=== PATIENT | female | born 1970 | race Caucasian/White ===

== ENCOUNTER 2017-07-27 11:29 | Emergency (ER) | payer OTHER ==
[2017-07-27 13:36] VITALS: BP 143/75
--- NOTE | 2017-07-27 14:03 | ED ---
Throat Pain/Nasal Congestion - HPI Summary HPI Summary: 47 yr old female with the complaint of sinus pressure bilateral, coughing, yellow nasal discharge. She has been ill for about one week. She denies other complaints. - History of Current Complaint Chief Complaint: UCGeneralIllness Time Seen by Provider: 07/27/17 13:44 - Allergies/Home Medications Allergies/Adverse Reactions: Allergies Allergy/AdvReac Type Severity Reaction Status Date / Time No Known Allergies Allergy Verified 07/27/17 13:33 PMH/Surg Hx/FS Hx/Imm Hx - Surgical History Surgery Procedure, Year, and Place: facial reconstructive surgery\. tubal ligation Infectious Disease History: No Infectious Disease History: Denies: Traveled Outside the [place] in Last 30 Days - Family History Known Family History: Positive: None - Social History Occupation: Employed Full-time Lives: With Family Alcohol Use: Daily Alcohol Amount: 8-15 beers Substance Use Type: Reports: None Smoking Status (MU): Heavy Every Day Tobacco Smoker Type: Cigarettes Amount Used/How Often: 1.5-2 ppd Review of Systems Constitutional: Negative Positive: Nasal Discharge, Other - sinus pressure Positive: Cough All Other Systems Reviewed And Are Negative: Yes Physical Exam Triage Information Reviewed: Yes Vital Signs On Initial Exam: Initial Vitals Temp Pulse Resp BP Pulse Ox 99 F 74 16 143/75 100 07/27/17 13:31 07/27/17 13:31 07/27/17 13:31 07/27/17 13:31 07/27/17 13:31 Vital Signs Reviewed: Yes Appearance: Positive: Well-Appearing, No Pain Distress Eyes: Positive: EOMI ENT: Positive: Nasal congestion, Sinus tenderness - bilateral sinus tenderness. Neck: Positive: Supple, Nontender Respiratory/Lung Sounds: Positive: Clear to Auscultation, Breath Sounds Present Cardiovascular: Positive: RRR. Negative: Murmur Abdomen Description: Positive: Nontender Musculoskeletal: Positive: Strength/ROM Intact Neurological: Positive: Sensory/Motor Intact, Alert, Oriented to Person Place, Time, CN Intact II-III Psychiatric: Positive: Normal AVPU Assessment: Alert - Cyrus Coma Scale Best Eye Response: 4 - Spontaneous Best Motor Response: 6 - Obeys Commands Best Verbal Response: 5 - Oriented Coma Scale Total: 15 Diagnostics - Vital Signs Vital Signs Temp Pulse Resp BP Pulse Ox 07/27/17 13:31 99 F 74 16 143/75 100 - Laboratory Lab Statement: Any lab studies that have been ordered have been reviewed, and results considered in the medical decision making process. EENT Course/Dx - Course Course Of Treatment: 47 yr old with sinusitis. Rx augmentin. Dc home - Diagnoses Provider Diagnoses: Sinusitis, Hypertension Discharge - Discharge Plan Condition: Good Disposition: HOME Prescriptions: Amoxicillin/Clavulanate TAB* [Augmentin TAB 875*] 875 mg PO BID #20 tab Patient Education Materials: Sinusitis (ED), Hypertension (ED) Referrals: Anjali Mendez PA [Primary Care Provider] -
== END 2017-07-27 14:00 | disposition home or self-care (01) ==
LOC: UCCORT 11:29
DX: J32.9 Chronic sinusitis, unspecified (principal); I10 Essential (primary) hypertension; F17.210 Nicotine dependence, cigarettes, uncomplicated
CPT/HCPCS: 99212; G0463

== ENCOUNTER 2017-08-21 10:37 | Emergency (ER) | payer OTHER ==
[2017-08-21 11:44] VITALS: BP 154/81
--- NOTE | 2017-08-21 12:02 | UC ---
General HPI - HPI Summary HPI Summary: PT IS C/O HEAD CONGESTION, SNEEZING, COUGH, BODYACHES AND SUBJECTIVE FEVER AND CHILLS. SHE ADMITS TO SOME WHEEZING AND SOB. PT IS A SMOKER BUT DENIES LUNG DISEASE. SUDDEN ONSET THIS PAST SUNDAY NIGHT. - History of Current Complaint Chief Complaint: UCRespiratory Stated Complaint: FLU SYMPTOMS Time Seen by Provider: 08/21/17 11:20 Hx Obtained From: Patient Hx Last Menstrual Period: 08/05/17 Onset/Duration: Sudden Onset Timing: Constant Pain Intensity: 3 Aggravating: nothing Alleviating: nothing Associated Signs & Symptoms: Positive: Cough, Fever, SOB, Wheezing. Negative: Chest Pain, Headache - Allergy/Home Medications Allergies/Adverse Reactions: Allergies Allergy/AdvReac Type Severity Reaction Status Date / Time No Known Allergies Allergy Verified 08/21/17 11:43 PMH/Surg Hx/FS Hx/Imm Hx Respiratory History: Bronchitis - Surgical History Surgical History: Yes Surgery Procedure, Year, and Place: facial reconstructive surgery\. tubal ligation - Family History Known Family History: Positive: None - Social History Occupation: Employed Full-time Lives: With Family Alcohol Use: Daily Alcohol Amount: 8-15 beers Substance Use Type: None Smoking Status (MU): Heavy Every Day Tobacco Smoker Type: Cigarettes Amount Used/How Often: 1.5-2 ppd - Immunization History Vaccination Up to Date: Yes Review of Systems Constitutional: Fever, Chills Skin: Negative Eyes: Negative ENT: Nasal Discharge, Sinus Congestion Respiratory: Shortness Of Breath, Cough Cardiovascular: Negative Gastrointestinal: Negative Genitourinary: Negative Motor: Negative Neurovascular: Negative Musculoskeletal: Negative Neurological: Negative Psychological: Negative Is Patient Immunocompromised?: No All Other Systems Reviewed And Are Negative: Yes Physical Exam Triage Information Reviewed: Yes Appearance: Well-Appearing Vital Signs: Initial Vital Signs Temp 98.9 F 08/21/17 11:39 Pulse 89 08/21/17 11:39 Resp 17 08/21/17 11:39 BP 154/81 08/21/17 11:39 Pulse Ox 100 08/21/17 11:39 Vital Signs Reviewed: Yes Eyes: Positive: Conjunctiva Clear ENT: Positive: Pharynx normal, Nasal congestion, TMs normal. Negative: Nasal drainage, Sinus tenderness Neck: Positive: Supple, Nontender, No Lymphadenopathy Respiratory: Positive: Lungs clear, No respiratory distress, Decreased breath sounds, Other: - cough is congested. Negative: Crackles Cardiovascular: Positive: RRR, No Murmur Abdomen Description: Positive: Nontender, No Organomegaly, Soft Bowel Sounds: Positive: Present Musculoskeletal: Positive: ROM Intact Neurological: Positive: Alert Psychological: Positive: Age Appropriate Behavior Skin Exam: Normal Course/Dx - Course Course Of Treatment: mild elevation in BP, no hx htn. i think illness related, will have rechecked on f/u. nothing on exam to suggest bacterila infection. abrupt onset with s/s's are DORA. tx supportive plus will add albuterol mdi. close f/u advised. - Differential Dx - Multi-Symptom Provider Diagnoses: influenza like illness Discharge - Discharge Plan Condition: Stable Disposition: HOME Prescriptions: Albuterol HFA INHALER* [Ventolin HFA Inhaler*] 2 puff INH Q6H 14 Days #1 mdi Patient Education Materials: Influenza (ED) Forms: *Work Release Referrals: Anjali Mendez PA [Primary Care Provider] - 5 Days
== END 2017-08-21 12:17 | disposition home or self-care (01) ==
LOC: UCCORT 10:37
DX: J11.1 Influenza due to unidentified influenza virus with other respiratory manifestations (principal); F17.210 Nicotine dependence, cigarettes, uncomplicated
CPT/HCPCS: 99212; G0463

== ENCOUNTER 2018-06-13 11:15 | Emergency (ER) | payer OTHER ==
[2018-06-13 13:00] VITALS: BP 171/87
[2018-06-13] MEDS ORDERED: Albuterol 2.5 MG/3 ML NEB.SOL* (0.083%) INH ONE (13:31)
--- NOTE | 2018-06-13 13:32 | UC ---
Respiratory Complaint HPI - HPI Summary HPI Summary: 6 days of productive cough, occasional chills, some body aches. 2 sick contacts at home, w/ her in room today. She is a smoker. did not get flu shot this yr. Has albuterol inhaler at home which she has not used at all. - History of Current Complaint Chief Complaint: UCRespiratory Stated Complaint: SINUSES, COUGH Time Seen by Provider: 06/13/18 12:57 Hx Last Menstrual Period: 08/05/17 Onset/Duration: Gradual Onset Pain Intensity: 3 Pain Scale Used: 0-10 Numeric Character: Cough: Productive Associated Signs And Symptoms: Positive: Chills. Negative: Dyspnea, Fever - Allergies/Home Medications Allergies/Adverse Reactions: Allergies Allergy/AdvReac Type Severity Reaction Status Date / Time No Known Allergies Allergy Verified 06/13/18 12:57 PMH/Surg Hx/FS Hx/Imm Hx Previously Healthy: Yes Respiratory History: Other - smoker - Surgical History Surgical History: Yes Surgery Procedure, Year, and Place: facial reconstructive surgery. tubal ligation - Family History Known Family History: Positive: None - Social History Alcohol Use: Daily Alcohol Amount: 8-15 beers Substance Use Type: None Smoking Status (MU): Heavy Every Day Tobacco Smoker Type: Cigarettes Amount Used/How Often: 1.5-2 ppd - Immunization History Vaccination Up to Date: Yes Review of Systems All Other Systems Reviewed And Are Negative: Yes Constitutional: Positive: Chills, Fatigue. Negative: Fever Eyes: Negative: Drainage Respiratory: Positive: Cough - productive. Negative: Shortness Of Breath Cardiovascular: Positive: Negative Gastrointestinal: Negative: Vomiting, Diarrhea Musculoskeletal: Positive: Myalgia Neurological: Negative: Headache Physical Exam Triage Information Reviewed: Yes Appearance: Well-Appearing, Thin, Other: - strong odor of smoke. Vital Signs: Initial Vital Signs Temp 98.9 F 06/13/18 12:57 Pulse 95 06/13/18 12:57 Resp 16 06/13/18 12:57 BP 171/87 06/13/18 12:57 Pulse Ox 97 06/13/18 12:57 Vital Signs Reviewed: Yes ENT: Positive: Pharynx normal, TMs normal, Uvula midline. Negative: Sinus tenderness Neck: Positive: Supple, Nontender, No Lymphadenopathy Respiratory Exam: Normal Respiratory: Positive: Lungs clear, No respiratory distress, Other: - coughing during visit. Cardiovascular Exam: Normal Cardiovascular: Positive: Other: - no LE edema Neurological: Positive: Alert Skin Exam: Normal UC Diagnostic Evaluation - Laboratory O2 Sat by Pulse Oximetry: 97 Respiratory Course/Dx - Course Course Of Treatment: Acute viral bronchitis in a smoker w/ good O2 today and no fever. has 2 sick contacts who are in the room w/ her. neg for flu. felt improvement w/ neb tx today. exam unremarkable aside from strong odor of smoke smell. Encouraged pt to use albuterol. We discussed how smoking could make symptoms worse. - Differential Dx/Diagnosis Differential Diagnosis/HQI/PQRI: Asthma, Bronchitis, CHF, Sinusitis Provider Diagnosis: Bronchitis Discharge - Sign-Out/Discharge Documenting (check all that apply): Patient Departure All imaging exams completed and their final reports reviewed: No Studies - Discharge Plan Condition: Good Disposition: HOME Prescriptions: Benzonatate CAP* [Tessalon 100 MG CAP*] 100 mg PO TID 5 Days #15 cap Patient Education Materials: Acute Bronchitis (ED), Hypertension (ED) Forms: *Work Release Referrals: Anjali Mendez PA [Primary Care Provider] - Additional Instructions: YOu do not have the flu and you do not have pneumonia. But you do have a virus causing inflammation of the large tubes in your lungs which is called bronchitis. There are no medications that treat viruses but we can at least treat your cough. Use your albuterol at home every 4-6 hours. Also your blood pressure was elevated which you should see your doctor for. - Billing Disposition and Condition Condition: GOOD Disposition: Home
== END 2018-06-13 14:30 | disposition home or self-care (01) ==
LOC: UCCORT 11:15
DX: J40 Bronchitis, not specified as acute or chronic (principal); F17.210 Nicotine dependence, cigarettes, uncomplicated
CPT/HCPCS: 99212; G0463

== ENCOUNTER 2018-06-25 15:02 | Emergency (ER) | payer OTHER ==
[2018-06-25 15:14] VITALS: BP 151/81
--- NOTE | 2018-06-25 15:30 | ED ---
Throat Pain/Nasal Congestion - History of Current Complaint Chief Complaint: UCGeneralIllness Time Seen by Provider: 06/25/18 15:14 Hx Obtained From: Patient Onset/Duration: Lasting Days Severity: Moderate Associated Signs And Symptoms: Positive: Wheezing, Sinus Discomfort Cough: Nonproductive - Epiglottits Risk Factors Epiglottis Risk Factors: Negative - Allergies/Home Medications Allergies/Adverse Reactions: Allergies Allergy/AdvReac Type Severity Reaction Status Date / Time No Known Allergies Allergy Verified 06/25/18 15:09 PMH/Surg Hx/FS Hx/Imm Hx Previously Healthy: Yes - drinks significant amount of alcohol ,smoking 2ppd Cardiovascular History: Reports: Hx Hypertension Respiratory History: Reports: Hx Chronic Obstructive Pulmonary Disease (COPD) - Surgical History Surgery Procedure, Year, and Place: facial reconstructive surgery. tubal ligation Infectious Disease History: No Infectious Disease History: Denies: Traveled Outside the [place] in Last 30 Days - Family History Known Family History: Positive: None - Social History Alcohol Use: Daily Alcohol Amount: 8-15 beers Substance Use Type: Reports: None Smoking Status (MU): Heavy Every Day Tobacco Smoker Type: Cigarettes Amount Used/How Often: 1.5-2 ppd Review of Systems Constitutional: Other - hot and cold , diaphoresis Positive: Chills Positive: Dental Pain, Ear Ache Cardiovascular: Negative Positive: Cough Gastrointestinal: Negative All Other Systems Reviewed And Are Negative: Yes Physical Exam Triage Information Reviewed: Yes Vital Signs On Initial Exam: Initial Vitals Temp Pulse Resp BP Pulse Ox 37.1 C 90 17 151/81 99 06/25/18 15:10 06/25/18 15:10 06/25/18 15:10 06/25/18 15:10 06/25/18 15:10 Vital Signs Reviewed: Yes Appearance: Positive: Ill-Appearing, Thin - plethora Skin: Positive: Skin Color Reflects Adequate Perfusion Head/Face: Positive: Normal Head/Face Inspection, Other - maxillary sinus tenderness bilaterallyh ENT: Positive: Normal ENT inspection, Pharynx normal Neck: Positive: Supple Respiratory/Lung Sounds: Positive: Breath Sounds Present Cardiovascular: Positive: Normal Abdomen Description: Positive: Nontender Bowel Sounds: Positive: Present Diagnostics - Vital Signs Vital Signs Temp Pulse Resp BP Pulse Ox 06/25/18 15:10 37.1 C 90 17 151/81 99 - Laboratory Lab Statement: Any lab studies that have been ordered have been reviewed, and results considered in the medical decision making process. EENT Course/Dx - Differential Diagnoses Differential Diagnoses: Foreign Body - Diagnoses Provider Diagnoses: Maxillary sinusitis, acute Is Visit Related: No Discharge - Sign-Out/Discharge Documenting (check all that apply): Patient Departure All imaging exams completed and their final reports reviewed: No Studies - Discharge Plan Condition: Fair Disposition: HOME Prescriptions: Amoxicillin PO (*) [Amoxicillin 875 MG (*)] 875 mg PO BID 10 Days #20 tab Fluticasone NASAL SPRAY 50MCG* [Flonase NASAL SPRAY 50MCG*] 2 spray BOTH NARES DAILY #1 btl Patient Education Materials: Sinusitis (ED) Forms: *Work Release Referrals: Anjali Mendez PA [Primary Care Provider] - - Billing Disposition and Condition Condition: FAIR Disposition: Home
== END 2018-06-25 15:37 | disposition home or self-care (01) ==
LOC: UCCORT 15:02
DX: J01.00 Acute maxillary sinusitis, unspecified (principal); I10 Essential (primary) hypertension; F17.210 Nicotine dependence, cigarettes, uncomplicated
CPT/HCPCS: 99212; G0463

== ENCOUNTER 2019-07-16 14:34 | Emergency (ER) | payer OTHER ==
--- NOTE | 2019-07-16 15:15 | UC ---
Respiratory Complaint HPI - HPI Summary HPI Summary: Patient presents to urgent care with 6-7 days of cough and congestion. Patient states her cough is now productive with thick green sputum. Patient states she does have some scattered wheezing. Patient states she feels fatigued and no appetite. No nausea vomiting. Patient works as a patient ate at a adult living facility. Patient has a history of emphysema. Patient does smoke cigarettes. Patient states she has previously that she's been using it immediately with little relief. Patient does not have albuterol. Patient has never had any intubated and does not remember the last time she was on prednisone but states she's taken in the past without problems. Patient did not get the flu vaccine this year. Patient's medications as centered in the EMR by triage was reviewed this visit. - History of Current Complaint Stated Complaint: COUGH,HEADACHE Time Seen by Provider: 07/16/19 15:11 Hx Obtained From: Patient Hx Last Menstrual Period: 05/2018 ?: No Onset/Duration: Gradual Onset, Lasting Days Severity Initially: Moderate - Allergies/Home Medications Allergies/Adverse Reactions: Allergies Allergy/AdvReac Type Severity Reaction Status Date / Time No Known Allergies Allergy Verified 07/16/19 15:16 PMH/Surg Hx/FS Hx/Imm Hx Previously Healthy: Yes Respiratory History: Other - emphysema - Surgical History Surgical History: Yes Surgery Procedure, Year, and Place: facial reconstructive surgery. tubal ligation - Family History Known Family History: Positive: Non-Contributory - Social History Occupation: Employed Full-time Lives: With Family Alcohol Use: Daily Alcohol Amount: 8-15 beers Substance Use Type: None Smoking Status (MU): Heavy Every Day Tobacco Smoker Type: Cigarettes Amount Used/How Often: 1.5-2 ppd - Immunization History Vaccination Up to Date: Yes Review of Systems All Other Systems Reviewed And Are Negative: Yes Constitutional: Positive: Fever - tactile, Fatigue ENT: Positive: Sinus Congestion Respiratory: Positive: Cough Cardiovascular: Positive: Negative Gastrointestinal: Positive: Negative Physical Exam - Summary Physical Exam Summary: Vital Signs Reviewed: Yes A+Ox3, congested, coarse cough Eyes: Conjunctiva Clear, PERLA. EOM intact and full ENT: Hearing grossly normal TM x 2 clear, turbinates inflammed and boggy, + PND , mmoist, uvula midline, no exudate, no erythema Neck: Positive: Supple Respiratory: Positive: No respiratory distress, No accessory muscle use + coarse cough, scattered wheeze insp and exp Cardiovascular: RRR nl s1, s2 no m/r CBT <2 sec abd soft + BS nt/nd no guarding, no distension Musculoskeletal Exam: REAL x 4 without difficulty Strength Intact, ROM Intact Neurological: Positive: Alert, + sensation throughout Psychological: Positive: Normal Response To examiner Skin: Positive: no rash, no ecchymosis Triage Information Reviewed: Yes Diagnostics - Radiology No standard instances Radiology Interpretation Completed By: Radiologist - Patient Name: JORGE JUDGE Medical Record#: [id number] Ordering Physician: Carmella Douglas MD Acct.#: [id number] : 1969 Age: 49 Sex: F Location: [facility] Exam Date: 07/16/19 1528 ADM Status: REG ER Order Information: CHEST PA & LAT 2 VWS Accession Number : [id number] CPT: 08494 HISTORY: cough, green sputum. COPD COMPARISONS: None relevant available at the time of dictation. VIEWS: 4: Frontal dual-energy and lateral views of the chest. FINDINGS: CARDIOMEDIASTINAL SILHOUETTE: The cardiomediastinal silhouette is normal. MAGDALENO: The magdaleno are normal. PLEURA: The costophrenic angles are sharp. No pleural abnormalities are noted. LUNG PARENCHYMA: There is hyperinflation with flattening of the diaphragm and expansion of the AP diameter of the chest. ABDOMEN: The upper abdomen is clear. There is no subphrenic gas. BONES AND SOFT TISSUES: No bone or soft tissue abnormalities are noted. OTHER: None. IMPRESSION: HYPERINFLATION, CONSISTENT WITH COPD. NO ACTIVE CARDIOPULMONARY DISEASE. <Electronically signed by Alexsander Rahman MD in OV> 160 Dictated By: Alexsander Rahman MD Dictated Date/Time: 07/16/19 160 Transcribed Date/Time: 07/16/19 160 Copy to: CC:Carmella Douglas MD; Anjali EAGLE [facility] - [facility] [address] [address] [place] [address] [place] [address] ph ([phone]) ph ([phone]) ph ([phone]) This report is only to be considered final once signed by the Provider(s) as displayed in the "<Electronically Signed by >" field (s). Absence of a signature indicates the report is in a draft status and still needs to be finalized. In the event this document was created by someone other than the signing Provider, the individual initiating the document will be listed in the "Entered by:" or "Dictated by:" jeong. of Re-Evaluation - Re-Evaluation First Eval Change: Improved - Patient's respiratory effort markedly improved following the neb with near resolution of wheezing. Chest x-ray negative for infiltrate. We' ll start patient denies hitting her smoking history. With prednisone as well as epidural. Educated patient regarding his review being a maintenance and not a rescue medication. Reviewed secretion precautions. Motrin Guillermo-Pen and return precautions. Patient states comfortably in no apparent. 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 Respiratory Course/Dx - Course Course Of Treatment: Patient presents to urgent care reporting 7-8 days of progressive congestion no productive cough with green sputum. Patient reports tactile fevers and fatigue. Patient's been using spray as needed. Patient does have a diagnosis of emphysema and does smoke a pack of cigars a day. On exam vital signs are stable. Patient has a course cough and scattered inspiratory respiratory wheezes. Will give patient DuoNeb and check a chest x-ray. We'll also check for flu. We'll reassess. Patient does work in healthcare. - Differential Dx/Diagnosis Provider Diagnosis: Acute bronchitis Discharge ED - Sign-Out/Discharge Documenting (check all that apply): Patient Departure All imaging exams completed and their final reports reviewed: Yes - Discharge Plan Condition: Stable Disposition: HOME Prescriptions: Albuterol HFA INHALER* [Ventolin HFA Inhaler*] 2 puff INH Q4H PRN #1 mdi PRN Reason: wheeze Amoxicillin PO (*) [Amoxicillin 875 MG (*)] 875 mg PO BID #20 tab predniSONE 20 mg TAB [Deltasone 20 MG TAB*] 40 mg PO DAILY #10 tab Patient Education Materials: Acute Bronchitis (ED) Forms: *Work Release Referrals: Anjali Mendez PA [Primary Care Provider] - Additional Instructions: -Take antibiotics exactly as prescribed until gone -Use your albuterol puffer - 2 puffs every 4 hours for the next 2 days - then as needed -Stay well hydrated - avoid excess caffeine and all alcohol - eat regular, healthy meals - - humidify the air in the room where you sleep - boil water, run a hot steam shower, vaporizer, cups of water by heat register - okay to take over the counter decongestant and cough medication -- These infections are spread by secretions - do NOT share eating or drinking utensils - clean items you share with other people such as cell phones, computer mouse, TV remote, computer tablets,etc.. Once you have been antibiotics for 2 days, change your toothbrush and your pillowcase. - work to decrease cigarette smoking -Contact your doctor to arrange a follow-up appointment this week. Call your doctor, return here or go to the emergency department with any questions or concerns - Billing Disposition and Condition Condition: STABLE Disposition: Home
[2019-07-16 15:16] VITALS: BP 156/77
[2019-07-16] MEDS ORDERED: Albuterol/Ipratropium NEB.SOL* Albuterol 2.5 MG/Ipratropium 0.5 MG 3 ML INH ONE (15:28)
== END 2019-07-16 16:28 | disposition home or self-care (01) ==
LOC: UCCORT 14:34
DX: J20.9 Acute bronchitis, unspecified (principal); J43.9 Emphysema, unspecified; R91.8 Other nonspecific abnormal finding of lung field; F17.210 Nicotine dependence, cigarettes, uncomplicated
CPT/HCPCS: 71046; 99212; A9270-GY; G0463

== ENCOUNTER 2019-08-27 14:09 | Emergency (ER) | payer SELFPAY ==
[2019-08-27 15:11] VITALS: BP 147/79
--- NOTE | 2019-08-27 15:21 | UC ---
Throat Pain/Nasal Torito HPI - HPI Summary HPI Summary: 49-year-old female with a history of COPD who continues to smoke. Over the past 5 days she has had sinus congestion, cough with wheezing and coughing up yellow sputum. - History of Current Complaint Chief Complaint: UCRespiratory Stated Complaint: SINUS Time Seen by Provider: 08/27/19 15:06 Hx Obtained From: Patient Hx Last Menstrual Period: 05/2018 ?: No Onset/Duration: Gradual Onset Severity: Mild Pain Intensity: 0 Cough: Productive Associated Signs & Symptoms: Positive: Sinus Discomfort, Nasal Discharge - Productive cough of - Allergies/Home Medications Allergies/Adverse Reactions: Allergies Allergy/AdvReac Type Severity Reaction Status Date / Time No Known Allergies Allergy Verified 08/27/19 15:08 Home Medications: Home Medications Albuterol HFA INHALER* [Ventolin HFA Inhaler*] 2 puff INH Q4H PRN #1 mdi [Rx Confirmed 08/27/19] Azithromyxin KARAN (NF) [Z-Karan (Zithromax) 250 mg tabs #6] 2 tab PO .TODAY, THEN 1 DAILY #6 tab 08/27/19 [Rx] Tiotropium CAPSULE (NF) [Spiriva CAPSULE (NF)] 1 puff DAILY 08/27/19 [History Confirmed 08/27/19] predniSONE 10 mg TAB [Deltasone 10 MG TAB*] 10 mg PO DAILY 12 Days #30 tab 08/26 [Rx] PMH/Surg Hx/FS Hx/Imm Hx Previously Healthy: Yes Cardiovascular History: Hypertension Respiratory History: COPD - Surgical History Surgical History: Yes Surgery Procedure, Year, and Place: facial reconstructive surgery. tubal ligation - Family History Known Family History: Positive: None, Non-Contributory - Social History Occupation: Employed Full-time Lives: With Family Alcohol Use: Daily Alcohol Amount: 6-9 beers Substance Use Type: None Smoking Status (MU): Heavy Every Day Tobacco Smoker Type: Cigarettes Amount Used/How Often: 1 ppd - Immunization History Vaccination Up to Date: Yes Review of Systems All Other Systems Reviewed And Are Negative: Yes ENT: Positive: Nasal Discharge, Sinus Congestion Respiratory: Positive: Cough - Productive cough of yellowish orange sputum. Is Patient Immunocompromised?: No Physical Exam Triage Information Reviewed: Yes Appearance: Well-Appearing, No Pain Distress, Well-Nourished Vital Signs: Initial Vital Signs Temp 98 F 08/27/19 15:08 Pulse 78 08/27/19 15:08 Resp 16 08/27/19 15:08 BP 147/79 08/27/19 15:08 Pulse Ox 100 08/27/19 15:08 Vital Signs Reviewed: Yes Eyes: Positive: Conjunctiva Clear ENT: Positive: Pharynx normal, Nasal congestion, Nasal drainage - Clear nasal coryza, TMs normal, Uvula midline Neck: Positive: Supple, Nontender, No Lymphadenopathy Respiratory: Positive: No accessory muscle use, Respiratory distress, Wheezing - Mild wheezing and rhonchi with forced expiration but with good air movement. Cardiovascular: Positive: RRR, No Murmur, Pulses Normal, Brisk Capillary Refill Musculoskeletal Exam: Normal Neurological Exam: Normal Psychological Exam: Normal Skin Exam: Normal Throat Pain/Nasal Course/Dx - Course Course Of Treatment: The patient is comfortable here and in no distress. I am going to put her on a tapering dose of prednisone as well as a Z-Karan. She was strongly encouraged to stop smoking. - Differential Dx/Diagnosis Provider Diagnosis: Acute bronchitis Discharge ED - Sign-Out/Discharge Documenting (check all that apply): Patient Departure All imaging exams completed and their final reports reviewed: No Studies - Discharge Plan Condition: Fair Disposition: HOME Prescriptions: Azithromyxin KARAN (NF) [Z-Karan (Zithromax) 250 mg tabs #6] 2 tab PO .TODAY, THEN 1 DAILY #6 tab predniSONE 10 mg TAB [Deltasone 10 MG TAB*] 10 mg PO DAILY 12 Days #30 tab Patient Education Materials: Acute Bronchitis (ED) Forms: *Work Release Referrals: Anjali Mendez PA [Primary Care Provider] - Additional Instructions: Increase fluids, stop smoking, take the prednisone with food. Follow-up with your primary care provider if no improvement in 3 or 4 days. - Billing Disposition and Condition Condition: FAIR Disposition: Home
== END 2019-08-27 15:40 | disposition home or self-care (01) ==
LOC: UCCORT 14:09
DX: J44.9 Chronic obstructive pulmonary disease, unspecified (principal); R09.81 Nasal congestion; I10 Essential (primary) hypertension; Z79.899 Other long term (current) drug therapy; Z79.52 Long term (current) use of systemic steroids; F17.210 Nicotine dependence, cigarettes, uncomplicated
CPT/HCPCS: 99212; G0463